=== PATIENT | female | born 1960 | race Caucasian/White ===

== ENCOUNTER 2017-07-12 14:04 | Day surgery (SDC) | payer OTHER ==
[2017-07-11 17:16] VITALS: BMI 17.6
[2017-07-12] MEDS ORDERED: SEVOFLURANE 250 ML BTL ONE (15:55)
[2017-07-12] MEDS ORDERED: BUPIVACAINE HCL/PF 0.5% (5MG/ML) 10 ML VIAL ONE (15:55)
[2017-07-12] MEDS ORDERED: MIDAZOLAM HCL 2 MG/2 ML SINGLE DOSE VIAL ONE (15:59)
[2017-07-12] MEDS ORDERED: ONDANSETRON 4 MG/2 ML VIAL IVPUSH PRN (16:04)
[2017-07-12] MEDS ORDERED: ceFAZolin SODIUM 1 GM VIAL IVPB ONE ×2 (16:20→16:23)
[2017-07-12] MEDS ORDERED: BUPIVACAINE HCL/PF 0.5% (5MG/ML) 10 ML VIAL IJ ONE ×2 (16:23→16:30)
[2017-07-12] MEDS ORDERED: SODIUM CHLORIDE 0.9% P/F 10 ML VIAL IJ ONE (16:26)
[2017-07-12] MEDS ORDERED: ceFAZolin SODIUM 1 GM VIAL ONE (16:26)
[2017-07-12] MEDS ORDERED: LIDOCAINE HCL 2% 100 MG/5 ML DISP.SYRIN ONE (16:28)
[2017-07-12] MEDS ORDERED: NEOSTIGMINE METHYLSULFATE 0.5 MG/ML - 10 ML MDV ONE (16:57)
[2017-07-12] MEDS ORDERED: GLYCOPYRROLATE 0.2 MG/1 ML VIAL ONE (16:58)
--- NOTE | 2017-07-12 17:25 | HP ---
Satellite H - Chief Complaint History of Present Illness: 57 year old woman with renal failure on dialysis with a permacath who wishes to go on peritoneal dialysis. History Source: Patient Limitations to Obtaining History: No Limitations - Past Medical History Allergies/Adverse Reactions: Allergies Allergy/AdvReac Type Severity Reaction Status Date / Time No Known Drug Allergies Allergy Verified 07/12/17 14:50 Cardiovascular: Yes: HTN Renal/: Yes: Renal Failure ...LMP Comment: POSTMENO Additional Medical History: Appendectomy - Current Medications Current Medications: Home Medications Medication Instructions Recorded Amlodipine Besylate 5 mg PO DAILY 07/11/17 Carvedilol [Coreg -] 6.25 mg PO BID 07/11/17 Citalopram Hydrobromide 40 mg PO DAILY 07/11/17 [Citalopram HBr] Folic Acid 1 mg PO DAILY 07/11/17 Lovastatin [Altoprev] 40 mg PO DAILY 07/11/17 Oxycodone HCl 5 mg PO PRN PRN 07/11/17 Sevelamer Carbonate [Renvela] 800 mg PO BIDAC 07/11/17 Oxycodone HCl 5 mg PO Q6H PRN #10 tablet MDD 4 07/12/17 Satellite Physical Exam - Physical Examination Vital Signs: Vital Signs Period Temp Pulse Resp BP Sys/Skinner Pulse Ox Last 24 Hr 98.1 F 73 18 118/49 98 General Appearance: Alert & Oriented x3 ENT: Clear Lung: Clear to auscultation Heart: Regular rate & rhythm Abdomen: Soft Extremities: No edema Satellite Impression/Plan - Impression/Plan Impression: Renal failure. Plan for peritoneal dialysis. Operative Procedure: Laparoscopy, placement of peritoneal dialysis catheter Date to be Performed: 07/12/17
[2017-07-12] MEDS ORDERED: IBUPROFEN 600 MG TABLET (FP) PO PRN (17:26)
[2017-07-12] MEDS ORDERED: oxyCODONE HCL 5 MG TABLET PO PRN (17:26)
--- NOTE | 2017-07-12 17:26 | OP ---
Operative Note - Note: Operative Date: 07/12/17 Pre-Operative Diagnosis: Renal failure Operation: Laparoscopy, lysis of adhesions, placement of peritoneal dialysis catheter Findings: Adhesion of omentum and sigmoid colon to anterior abdominal wall. Surgeon: Dez Tadeo Anesthesiologist/JAVA APPLICATION ENGINEER: Collin Talavera Anesthesia: General
[2017-07-12 19:17] VITALS: BP 155/76; PULSE 70
[2017-07-12 19:19] VITALS: TEMP 98.4
--- NOTE | 2017-07-15 14:00 | OP ---
DATE OF OPERATION: 07/12/2017 SURGEON: Dez Tadeo MD PROCEDURE: Laparoscopy with lysis of adhesions and placement of peritoneal dialysis catheter. PREOPERATIVE DIAGNOSIS: End-stage renal disease. POSTOPERATIVE DIAGNOSIS: End-stage renal disease with intraabdominal adhesions. ANESTHESIA: General. ANESTHESIOLOGIST: MD Sadaf INTRAOPERATIVE FINDINGS: There was an intraabdominal adhesion of omentum and the sigmoid colon to the anterior abdominal wall. OPERATIVE PROCEDURE: Following routine patient identification with side and site verification, general anesthesia was induced. The patient's abdomen was prepped with ChloraPrep. Timeout was performed. A skin incision was made in the midline above the umbilicus and a 5-mm Opti port placed under direct vision. Pneumoperitoneum was established to 15 mmHg. A 5-mm angled laparoscope was inserted. A second 5-mm port was placed in the left lower quadrant under direct vision. A LigaSure device was used to divide adhesions between omentum and sigmoid colon to the anterior abdominal wall until the pelvis was freed. A skin incision was then made to the left of the umbilicus and an 8-mm bladeless trocar advanced under laparoscopic guidance to the underside of the peritoneum and then inferiorly down towards the pelvis where it entered the peritoneal cavity. A swan-neck curled Tenckhoff catheter was then advanced with a poker in through the port, positioning the catheter in the pelvis. The port was removed, leaving the inner cuff just under the peritoneum. The other end was attached to a curved metal tunnel which was passed through the subcutaneous tissues to exit at the previously identified place in the site in the right lower quadrant abdominal wall. The Luer-Domenico adapter was attached and 1 L of saline allowed to run in under gravity in under 4 minutes. The fluid was then allowed to drain until there was only 300 mL left in the peritoneal cavity, and the catheter was capped. All skin incisions were then closed with subcutaneous sutures of 3-0 Vicryl and subcuticular suture of 4-0 Biosyn on the skin. Dermabond glue was applied as dressing, and a bio-occlusive dressing applied over the catheter exit site. Patient was then taken to the recovery room in stable condition. Kamilah [id number] [facility]
== END 2017-07-12 19:17 | disposition home or self-care (01) ==
LOC: JASU-SURG 14:04
PROVIDERS: ATTEND Surgery
PROC: 0WHG43Z Insertion of Infusion Device into Peritoneal Cavity, Percutaneous Endoscopic Approach (ICD-10-PCS; principal; 2017-07-12 15:30)
DX: I12.0 Hypertensive chronic kidney disease with stage 5 chronic kidney disease or end stage renal disease (principal); Z99.2 Dependence on renal dialysis
CPT/HCPCS: 36415; 84132; 94760